=== PATIENT | male | born 1955 | race Caucasian/White ===

== ENCOUNTER 2020-12-12 00:08 | Emergency (ER) | payer OTHER ==
[2020-12-12] MEDS ORDERED: KETOROLAC TROMETHAMINE INJ 30 MG/ML VIAL IM ONE (00:26)
[2020-12-12 00:42] VITALS: TEMP 97.9
--- NOTE | 2020-12-12 00:57 | RAD ---
EXAM DESCRIPTION: XR ACUTE ABDOMEN SERIES CLINICAL HISTORY: RIGHT SIDED ABD AND FLANK PAIN TECHNIQUE: Two views of the abdomen and frontal view of the chest are submitted. COMPARISON: None available for comparison FINDINGS: Heart: The cardiac silhouette is within normal limits. Lungs: No focal consolidation. Mediastinum: Thoracic aortic atherosclerosis. Moderate hiatal hernia. Pleura: Unremarkable Bowel: Gas is seen throughout the large bowel to the level of the rectum. No dilation. Calcifications: None Bones: Multilevel spondylosis. No acute fracture. IMPRESSION: Nonobstructive bowel gas pattern. Electronically signed by: Virgie Hudson MD 12/12/2020 12:56 AM [facility]
[2020-12-12] MEDS ORDERED: SODIUM CHLORIDE 0.9% 1000ML 1,000 ML IVS ONE (02:19)
[2020-12-12] MEDS ORDERED: TAMSULOSIN 0.4 MG CAP PO ONE (02:19)
[2020-12-12] MEDS ORDERED: HYDROcodone 7.5MG/APAP 325MG 1 EA TAB PO ONE (02:19)
--- NOTE | 2020-12-12 02:34 | CT ---
EXAM: CT Abdomen and Pelvis Without Intravenous Contrast CLINICAL HISTORY: The patient is 65 years old and is Male; acute rt sided abd pain TECHNIQUE: Axial computed tomography images of the abdomen and pelvis without intravenous contrast. Sagittal and coronal reformatted images were created and reviewed. This CT exam was performed using one or more of the following dose reduction techniques: automated exposure control, adjustment of the mA and/or kV according to patient size, and/or use of iterative reconstruction technique. COMPARISON: No relevant prior studies available. FINDINGS: Lung bases: Unremarkable. No mass. No consolidation. Mediastinum: 8 cm hiatal hernia. ABDOMEN: Liver: Unremarkable. Gallbladder and bile ducts: Unremarkable. No calcified stones. No ductal dilation. Pancreas: Unremarkable. No ductal dilation. Spleen: Unremarkable. No splenomegaly. Adrenals: Unremarkable. No mass. Kidneys and ureters: 3 mm stone in the right proximal ureter. Mild right hydroureteronephrosis. Moderate right periureteral fat stranding. Mild bilateral perinephric stranding. Stomach and bowel: Unremarkable. No obstruction. No mucosal thickening. PELVIS: Appendix: Appendix is normal. Bladder: Unremarkable. No stones. Reproductive: Unremarkable as visualized. ABDOMEN and PELVIS: Intraperitoneal space: Unremarkable. No free air. No significant fluid collection. Bones/joints: Mild anterolisthesis of L5 on S1. Left pars defect at L5. No acute fracture. No dislocation. Soft tissues: Unremarkable. Vasculature: Unremarkable. No abdominal aortic aneurysm. Lymph nodes: Unremarkable. No enlarged lymph nodes. IMPRESSION: 1. 8 cm hiatal hernia. 2. 3 mm stone in the right proximal ureter. Mild right hydroureteronephrosis. Moderate right periureteral fat stranding Electronically signed by: Liborio Pope MD 12/12/2020 2:33 AM [facility]
--- NOTE | 2020-12-12 02:49 | ED.PDOC ---
History of Present Illness - General Chief Complaint: Abdominal Pain Stated Complaint: abdominal pain Time Seen by Provider: 12/12/20 00:26 Source: patient Exam Limitations: no limitations - History of Present Illness Initial Comments: The patient is a 65-year-old male presented emergency room secondary to acute onset right-sided abdominal and flank pain. No urinary symptoms. No nausea or vomiting. No pain to the testicle or penis. No difficulties with bowel movements. No fevers. Pain was very abrupt in onset and severe. Timing/Duration: 1 hour Severity: severe Improving Factors: nothing Worsening Factors: nothing Associated Symptoms: denies symptoms Allergies/Adverse Reactions: Allergies Penicillins Allergy (Verified 12/12/20 00:38) Home Medications: Ambulatory Orders Kdoixdtzuttkh-Rmze-Nuakuzlsmn [Fioricet] 1 ea PO Q8H PRN #21 tab 12/12/20 Tamsulosin HCl [Flomax] 0.4 mg PO DAILY #5 cap 12/12/20 Review of Systems - Review of Systems Constitutional: States: no symptoms reported EENTM: States: no symptoms reported Respiratory: States: no symptoms reported Cardiology: States: no symptoms reported Gastrointestinal/Abdominal: States: abdominal pain Genitourinary: States: no symptoms reported Musculoskeletal: States: back pain Skin: States: no symptoms reported Neurological: States: no symptoms reported Endocrine: States: no symptoms reported All other Systems: No Change from Baseline Past Medical History (General) - Patient Medical History Hx Seizures: No Hx Stroke: No Hx Dementia: No Hx Asthma: No Hx of COPD: No Hx Cardiac Disorders: No Hx Congestive Heart Failure: No Hx Pacemaker: No Hx Hypertension: Yes Hx Thyroid Disease: No Hx Diabetes: No Hx Gastroesophageal Reflux: Yes Hx Renal Disease: No Hx Cancer: No Hx of HIV: No Hx Hepatitis C: No Hx MRSA: No Surgical History: other - Vaccination History Hx Tetanus, Diphtheria Vaccination: No Hx Influenza Vaccination: No Hx Pneumococcal Vaccination: No - Social History Hx Tobacco Use: No Hx Chewing Tobacco Use: No Hx Alcohol Use: No Hx Substance Use: No Hx Substance Use Treatment: No Hx Depression: No Feels Threatened In Home Enviroment: No Feels Threatened In a Relationship: No Hx Physical Abuse: No Hx Emotional Abuse: No Hx Suspected Abuse: No - Female History Patient is a Female of Child Bearing Age (10 -59 yrs old): No - Triage Comment ED Triage Comment: The patient was alert and oriented times 4 and complained of right lower abdominal pain that radiated to his right flank. He denied nausea and vomiting and had no position of comfort. He denied chest pain and shortness of breath and had no other noted complaints at the time of assessment. Family Medical History - Family History Mother Family History: Unknown Physical Exam - Physical Exam General Appearance: Alert, Anxious, No apparent distress, Obvious distress Eye Exam: bilateral normal Ears, Nose, Throat: hearing grossly normal, normal ENT inspection, normal pharynx Neck: full range of motion, supple Respiratory: lungs clear, normal breath sounds, no respiratory distress, no accessory muscle use Cardiovascular/Chest: normal peripheral pulses, regular rate, rhythm, no edema Peripheral Pulses: radial,right: 2+, radial,left: 2+ Gastrointestinal/Abdominal: non tender, soft Rectal Exam: deferred Back Exam: no CVA tenderness, no vertebral tenderness Extremity: normal range of motion, non-tender, normal inspection, no pedal edema, normal capillary refill Neurologic: stars specialist II-XII nml as tested, alert, normal mood/affect, oriented x 3 Skin Exam: normal color Comments: Vital Signs - 24 hr 12/12/20 12/12/20 12/12/20 00:18 01:09 02:00 Temperature 97.9 F Pulse Rate [ 63 79 77 Pulse Ox] Respiratory 18 16 16 Rate Blood Pressure 140/90 133/90 128/84 [Left Arm] O2 Sat by Pulse 97 97 98 Oximetry Progress - Progress Progress: 12/12/20 02:51 The patient is a 65-year-old male presented emergency room secondary to abdominal pain that appears to be due to a 3 mm stone in the proximal right ureter. The patient is receiving a liter of IV fluids as well as a dose of Flomax and Toradol. He does need to keep himself well-hydrated. He can take Aleve 2 tablets twice daily for the next few days. He will additionally be written for 5 days of Flomax. He will also receive some Fioricet for as needed use for the more severe pain. ER warnings are given. If pain is still persistent after a week then a repeat evaluation may be warranted. [email or web address] [phone] - Results/Orders Results/Orders: Acute abdominal series appears benign. He does have a hiatal hernia. No obstruction. CT scan of the abdomen pelvis shows a 3 mm stone in the proximal right ureter. Mild hydro-. EKG shows normal sinus rhythm at 66 bpm. Normal axis. Normal R wave progression. No ST segment or T wave changes indicative of acute ischemia. Normal QT interval. Laboratory Results - last 24 hr 12/12/20 12/12/20 12/12/20 00:43 00:43 00:43 WBC 9.9 RBC 4.81 Hgb 14.8 Hct 43.7 MCV 90.9 MCH 30.7 MCHC 33.8 RDW 12.8 Plt Count 226 MPV 8.2 Absolute Neuts (auto) 7.60 H Absolute Lymphs (auto) 1.40 Absolute Monos (auto) 0.70 Absolute Eos (auto) 0.10 Absolute Basos (auto) 0.10 Neutrophils % 77.1 Lymphocytes % 14.0 L Monocytes % 7.3 Eosinophils % 0.9 L Basophils % 0.7 Sodium 138 Potassium 3.7 Chloride 105 Carbon Dioxide 23 Anion Gap 13.7 BUN 21 H Creatinine 1.42 H BUN/Creatinine Ratio 14.8 Random Glucose 135 H Serum Osmolality 280.7 Lactic Acid 1.1 Calcium 8.9 Total Bilirubin 0.6 AST 22 ALT 23 Alkaline Phosphatase 61 Creatine Kinase 286 H* CK-MB (CK-2) 7.3 H* CK-MB (CK-2) % 2.55 Troponin I < 0.02 Serum Total Protein 7.5 Albumin 4.3 Globulin 3.2 Albumin/Globulin Ratio 1.3 Amylase 84 Lipase 44 Urine Color Urine Appearance Urine pH Ur Specific [place] Urine Protein Urine Glucose (UA) Urine Ketones Urine Blood Urine Nitrite Urine Bilirubin Urine Urobilinogen Ur Leukocyte Esterase Urine RBC Urine WBC Ur Epithelial Cells Urine Bacteria Urine Mucus 12/12/20 00:43 WBC RBC Hgb Hct MCV MCH MCHC RDW Plt Count MPV Absolute Neuts (auto) Absolute Lymphs (auto) Absolute Monos (auto) Absolute Eos (auto) Absolute Basos (auto) Neutrophils % Lymphocytes % Monocytes % Eosinophils % Basophils % Sodium Potassium Chloride Carbon Dioxide Anion Gap BUN Creatinine BUN/Creatinine Ratio Random Glucose Serum Osmolality Lactic Acid Calcium Total Bilirubin AST ALT Alkaline Phosphatase Creatine Kinase CK-MB (CK-2) CK-MB (CK-2) % Troponin I Serum Total Protein Albumin Globulin Albumin/Globulin Ratio Amylase Lipase Urine Color Yellow Urine Appearance Clear Urine pH 5.5 Ur Specific [place] >= 1.030 Urine Protein Negative Urine Glucose (UA) Negative Urine Ketones Trace Urine Blood Large H Urine Nitrite Negative Urine Bilirubin Negative Urine Urobilinogen 0.2 Ur Leukocyte Esterase Negative Urine RBC 10-20 H Urine WBC 1-3 Ur Epithelial Cells 0 Urine Bacteria 0 Urine Mucus Trace Departure - Departure Clinical Impression: Calcium ureterolithiasis Disposition: Discharge to Home or Self Care Condition: Fair Departure Forms: ED Discharge - Pt. Copy, Patient Portal Self Enrollment Instructions: DI for Abdominal Pain-Adult, Kidney Stones (DC), Renal Colic Diet: regular diet Activity: increase activity as tolerated Prescriptions: Jkzsyzsvfgmbv-Whhy-Heewcwxkuj [Fioricet] 1 ea PO Q8H PRN #21 tab PRN Reason: Pain Tamsulosin HCl [Flomax] 0.4 mg PO DAILY #5 cap Home Medications: Ambulatory Orders Dffesjpciduzp-Aicv-Yabewtutqj [Fioricet] 1 ea PO Q8H PRN #21 tab 12/12/20 Tamsulosin HCl [Flomax] 0.4 mg PO DAILY #5 cap 12/12/20 Additional Instructions: The patient is a 65-year-old male presented emergency room secondary to abdominal pain that appears to be due to a 3 mm stone in the proximal right ureter. The patient is receiving a liter of IV fluids as well as a dose of Flomax and Toradol. He does need to keep himself well-hydrated. He can take Aleve 2 tablets twice daily for the next few days. He will additionally be w ritten for 5 days of Flomax. He will also receive some Fioricet for as needed use for the more severe pain. ER warnings are given. If pain is still persistent after a week then a repeat evaluation may be warranted.
[2020-12-12 03:05] VITALS: BP 143/92; O2SAT 97
== END 2020-12-12 03:05 | disposition home or self-care (01) ==
LOC: ER 00:08
DX: N13.2 Hydronephrosis with renal and ureteral calculous obstruction (principal); K44.9 Diaphragmatic hernia without obstruction or gangrene; R11.2 Nausea with vomiting, unspecified; K21.9 Gastro-esophageal reflux disease without esophagitis; I10 Essential (primary) hypertension; Z88.0 Allergy status to penicillin
CPT/HCPCS: 74019; 74176; 80053; 81001; 82150; 82550; 82553; 83605; 83690; 84484; 85025; J1885; J7030